=== PATIENT | male | born 1960 | race Caucasian/White ===

== ENCOUNTER 2022-05-01 22:15 | Inpatient (IN) | payer BC ==
[2022-05-01 22:49] LABS: BASO % 0.3 % (0-2.0); EOS % 1.1 % (0-4.5); HEMATOCRIT 49.9 % (35.4-49); HEMOGLOBIN 16.7 GM/dL (11.7-16.9); LYMPH % 3.8 % (8-40); MCH 31.5 pg (25.7-33.7); MCHC 33.4 g/dl (32.0-35.9); MEAN CELL VOLUME 94.5 fl (80-96); MEAN PLT VOLUME 8.5 fl (7.5-11.1); MONO % 4.1 % (3.8-10.2); NEUT % 90.7 % (42.8-82.8); PLATELET COUNT 163 10^3/uL (134-434); RBC 5.29 M/mm3 (4.00-5.60); RDW 13.5 % (11.9-15.9); WHITE BLOOD COUNT 17.3 K/mm3 (4.0-10.0)
[2022-05-01 22:58] LABS: INR 1.03 (0.83-1.09)
[2022-05-01 23:01] LABS: ACTIVATED PTT 25.3 SECONDS (25.2-36.5)
[2022-05-01 23:10] LABS: CALCIUM 9.9 mg/dL (8.5-10.1)
[2022-05-01 23:11] LABS: ALBUMIN 4.4 g/dl (3.4-5.0); BLOOD UREA NITROGEN 25.1 mg/dL (7-18); MAGNESIUM 2.2 mg/dL (1.8-2.4)
[2022-05-01 23:13] LABS: CREATININE 1.5 mg/dL (0.55-1.3)
[2022-05-01 23:14] LABS: BILIRUBIN,TOTAL 0.6 mg/dL (0.2-1); TOT PROT 7.4 g/dl (6.4-8.2)
[2022-05-01 23:21] LABS: LACTIC ACID 2.9 mmol/L (0.4-2.0)
[2022-05-01] MEDS ORDERED: SODIUM CHLORIDE 0.9% 500 ML INFUS.BAG IV ONE (23:58)
[2022-05-02] MEDS ORDERED: CEFTRIAXONE 1,000 MG in DEXTROSE 5%-WATER - 50 ML IVPB ONE (03:11)
[2022-05-02] MEDS ORDERED: AZITHROMYCIN IVPB 500 MG in DEXTROSE 5%-WATER - 250 ML IVPB ONE (03:11)
[2022-05-02] MEDS ORDERED: CEFTRIAXONE 1 GM/50 ML BAG ONE (03:22)
[2022-05-02] MEDS ORDERED: SODIUM CHLORIDE 1,000 ML IV STA (03:35)
[2022-05-02] MEDS ORDERED: LACTATED RINGERS SOLUTION 1000 ML INFUS.BAG IV ONE (03:37)
[2022-05-02] MEDS ORDERED: AZITHROMYCIN IVPB 500 MG/250 ML BAG IVPB ONE (03:42)
[2022-05-02 04:05] LABS: LACTIC ACID 2.6 mmol/L (0.4-2.0)
[2022-05-02 07:06] LABS: CALCIUM 8.6 mg/dL (8.5-10.1)
[2022-05-02 07:07] LABS: BLOOD UREA NITROGEN 29.4 mg/dL (7-18); MAGNESIUM 1.8 mg/dL (1.8-2.4)
[2022-05-02 07:10] LABS: CREATININE 1.5 mg/dL (0.55-1.3); PHOSPHOROUS 2.8 mg/dL (2.5-4.9)
[2022-05-02 07:11] LABS: BILIRUBIN,TOTAL 0.5 mg/dL (0.2-1); TOT PROT 5.8 g/dl (6.4-8.2)
[2022-05-02 07:21] LABS: ALBUMIN 3.4 g/dl (3.4-5.0)
[2022-05-02 07:38] LABS: HEMATOCRIT 46.1 % (35.4-49); HEMOGLOBIN 15.3 GM/dL (11.7-16.9); MCH 31.4 pg (25.7-33.7); MCHC 33.3 g/dl (32.0-35.9); MEAN CELL VOLUME 94.1 fl (80-96); MEAN PLT VOLUME 9.5 fl (7.5-11.1); PLATELET COUNT 122 10^3/uL (134-434); RDW 13.6 % (11.9-15.9)
[2022-05-02] MEDS: SODIUM CHLORIDE 1,000 ML IV SCH (07:55)
[2022-05-02] MEDS ORDERED: PIPERACILLIN/TAZOB 4.5 GM 4.5 GM/100 ML BAG IVPB ONE (07:56)
[2022-05-02] MEDS ORDERED: ALBUTEROL SO4 2.5/IPRATROPIUM 0.5 INH SOL 3 ML VIAL.NEB. NEB ONE ×3 (07:56→16:21)
[2022-05-02] MEDS: ALBUTEROL SO4 2.5/IPRATROPIUM 0.5 INH SOL 3 ML VIAL.NEB. NEB SCH ×4 (08:32→21:59)
[2022-05-02 08:41] LABS: N-TERMINAL BNP 203.6 pg/ml (5-125)
[2022-05-02] MEDS ORDERED: PIPERACILLIN/TAZOB 4.5 GM 4.5 GM in DEXTROSE 5%-WATER 100 ML IVPB SCH ×2 (09:00)
[2022-05-02 09:10] LABS: ARTERIAL BLD GAS O2 SATURATION 96.2 % (95-98); ARTERIAL BLOOD GAS BASE EXCESS -5.2 mmol/L (-2-2); ARTERIAL BLOOD GAS PO2 85.1 mmHg (80-100); ARTERIAL BLOOD GAS pH 7.359 (7.350-7.450)
[2022-05-02] MEDS ORDERED: PANTOPRAZOLE 40 MG TABLET PO ONE (09:31)
[2022-05-02] MEDS: PANTOPRAZOLE 40 MG TABLET PO SCH (09:42)
[2022-05-02] MEDS: NICOTINE 21 MG/24 HOURS TOPICAL PATCH TD SCH (13:15)
[2022-05-02] MEDS ORDERED: CEFTRIAXONE 2 GM/100 ML BAG IVPB ONE (16:22)
[2022-05-02] MEDS: CEFTRIAXONE 2 GM in DEXTROSE 5%-WATER 100 ML IVPB SCH (16:33)
[2022-05-02] MEDS ORDERED: methylPREDNISolone NA SUCC 40 MG/1 ML VIAL ONE (18:02)
[2022-05-02] MEDS: methylPREDNISolone NA SUCC 40 MG/1 ML VIAL IVPUSH SCH (18:13)
[2022-05-02] MEDS: RIVAROXABAN 10 MG TABLET PO SCH (21:59)
[2022-05-03] MEDS: SODIUM CHLORIDE 1,000 ML IV SCH ×2 (01:38→09:13)
[2022-05-03] MEDS: methylPREDNISolone NA SUCC 40 MG/1 ML VIAL IVPUSH SCH ×3 (01:38→17:52)
[2022-05-03 07:14] LABS: HEMATOCRIT 40.3 % (35.4-49); HEMOGLOBIN 13.6 GM/dL (11.7-16.9); MCH 31.5 pg (25.7-33.7); MCHC 33.7 g/dl (32.0-35.9); MEAN CELL VOLUME 93.5 fl (80-96); MEAN PLT VOLUME 9.4 fl (7.5-11.1); PLATELET COUNT 114 10^3/uL (134-434); RDW 13.7 % (11.9-15.9); WHITE BLOOD COUNT 14.1 K/mm3 (4.0-10.0)
[2022-05-03 07:41] LABS: CALCIUM 8.6 mg/dL (8.5-10.1)
[2022-05-03 07:45] LABS: CREATININE 0.9 mg/dL (0.55-1.3)
[2022-05-03] MEDS: ALBUTEROL SO4 2.5/IPRATROPIUM 0.5 INH SOL 3 ML VIAL.NEB. NEB SCH ×4 (08:25→20:45)
[2022-05-03] MEDS: NICOTINE 21 MG/24 HOURS TOPICAL PATCH TD SCH (09:15)
[2022-05-03] MEDS: PANTOPRAZOLE 40 MG TABLET PO SCH (09:15)
[2022-05-03] MEDS: VANCOMYCIN 250 MG/5 ML ORAL SOLUTION PO SCH (09:49)
[2022-05-03 09:51] LABS: LACTIC ACID 3.7 mmol/L (0.4-2.0)
[2022-05-03] MEDS ORDERED: AZITHROMYCIN IVPB 500 MG/250 ML BAG IVPB SCH (10:00)
[2022-05-03] MEDS ORDERED: SODIUM CHLORIDE 1,000 ML IV SCH (11:03)
[2022-05-03] MEDS: CEFTRIAXONE 2 GM in DEXTROSE 5%-WATER 100 ML IVPB SCH (11:14)
[2022-05-03 16:21] LABS: LACTIC ACID 3.9 mmol/L (0.4-2.0)
[2022-05-03] MEDS ORDERED: PATIENT'S OWN MEDICATION (NON-FORMULARY) (Eluxadoline [Viberzi] 75 MG Tablet) PO SCH (17:30)
[2022-05-03] MEDS: RIVAROXABAN 10 MG TABLET PO SCH (21:22)
[2022-05-04] MEDS: methylPREDNISolone NA SUCC 40 MG/1 ML VIAL IVPUSH SCH ×3 (02:20→17:37)
[2022-05-04 07:09] LABS: HEMATOCRIT 36.8 % (35.4-49); HEMOGLOBIN 12.4 GM/dL (11.7-16.9); MCH 31.4 pg (25.7-33.7); MCHC 33.6 g/dl (32.0-35.9); MEAN CELL VOLUME 93.5 fl (80-96); MEAN PLT VOLUME 9.1 fl (7.5-11.1); PLATELET COUNT 115 10^3/uL (134-434); RBC 3.93 M/mm3 (4.00-5.60); RDW 13.7 % (11.9-15.9); WHITE BLOOD COUNT 14.7 K/mm3 (4.0-10.0)
[2022-05-04] MEDS: ALBUTEROL SO4 2.5/IPRATROPIUM 0.5 INH SOL 3 ML VIAL.NEB. NEB SCH ×4 (07:15→20:31)
[2022-05-04 07:31] LABS: ALBUMIN 2.8 g/dl (3.4-5.0); BLOOD UREA NITROGEN 26.9 mg/dL (7-18); CALCIUM 8.2 mg/dL (8.5-10.1)
[2022-05-04 07:34] LABS: CREATININE 0.8 mg/dL (0.55-1.3)
[2022-05-04 07:36] LABS: TOT PROT 5.1 g/dl (6.4-8.2)
[2022-05-04 07:49] LABS: LACTIC ACID 2.6 mmol/L (0.4-2.0)
[2022-05-04] MEDS: ELUXADOLINE 75 MG PO SCH ×2 (07:59→17:36)
[2022-05-04 08:32] LABS: BILIRUBIN,TOTAL 0.3 mg/dL (0.2-1)
[2022-05-04] MEDS: NICOTINE 21 MG/24 HOURS TOPICAL PATCH TD SCH (09:42)
[2022-05-04] MEDS: VANCOMYCIN 250 MG/5 ML ORAL SOLUTION PO SCH (09:43)
[2022-05-04] MEDS: CEFTRIAXONE 2 GM in DEXTROSE 5%-WATER 100 ML IVPB SCH (09:43)
[2022-05-04] MEDS: PANTOPRAZOLE 40 MG TABLET PO SCH (09:43)
[2022-05-04] MEDS ORDERED: SODIUM CHLORIDE NASAL SPRAY 44 ML BOTTLE NS PRN (10:26)
[2022-05-04] MEDS: RIVAROXABAN 10 MG TABLET PO SCH (21:18)
[2022-05-05] MEDS: methylPREDNISolone NA SUCC 40 MG/1 ML VIAL IVPUSH SCH ×3 (01:45→21:34)
[2022-05-05 06:35] LABS: HEMATOCRIT 38.3 % (35.4-49); MCH 32.4 pg (25.7-33.7); MCHC 33.9 g/dl (32.0-35.9); MEAN CELL VOLUME 95.5 fl (80-96); MEAN PLT VOLUME 9.6 fl (7.5-11.1); PLATELET COUNT 130 10^3/uL (134-434); RBC 4.02 M/mm3 (4.00-5.60); RDW 13.6 % (11.9-15.9); WHITE BLOOD COUNT 17.6 K/mm3 (4.0-10.0)
[2022-05-05 07:04] LABS: CALCIUM 8.8 mg/dL (8.5-10.1)
[2022-05-05 07:05] LABS: ALBUMIN 2.8 g/dl (3.4-5.0)
[2022-05-05 07:09] LABS: CREATININE 0.9 mg/dL (0.55-1.3)
[2022-05-05 07:10] LABS: BILIRUBIN,TOTAL 0.3 mg/dL (0.2-1); TOT PROT 5.1 g/dl (6.4-8.2)
[2022-05-05] MEDS: ALBUTEROL SO4 2.5/IPRATROPIUM 0.5 INH SOL 3 ML VIAL.NEB. NEB SCH ×4 (08:29→21:14)
[2022-05-05] MEDS: ELUXADOLINE 75 MG PO SCH ×2 (08:34→17:37)
[2022-05-05] MEDS: PANTOPRAZOLE 40 MG TABLET PO SCH (10:09)
[2022-05-05] MEDS: NICOTINE 21 MG/24 HOURS TOPICAL PATCH TD SCH (10:10)
[2022-05-05] MEDS: CEFTRIAXONE 2 GM in DEXTROSE 5%-WATER 100 ML IVPB SCH (10:10)
[2022-05-05] MEDS: VANCOMYCIN 250 MG/5 ML ORAL SOLUTION PO SCH (10:13)
[2022-05-05 13:57] LABS: LACTIC ACID 3.7 mmol/L (0.4-2.0)
[2022-05-05] MEDS ORDERED: LACTATED RINGERS SOLUTION 1,000 ML/1,000 ML INFUS.BAG IV SCH ×2 (14:30→14:32)
[2022-05-05] MEDS: RIVAROXABAN 10 MG TABLET PO SCH (21:34)
[2022-05-05 22:39] LABS: LACTIC ACID 3.4 mmol/L (0.4-2.0)
[2022-05-05 23:25] VITALS: BMI 24.8
[2022-05-06] MEDS: LACTATED RINGERS SOLUTION 1,000 ML/1,000 ML INFUS.BAG IV SCH ×2 (03:25→17:28)
[2022-05-06] MEDS: ELUXADOLINE 75 MG PO SCH ×2 (07:47→17:26)
[2022-05-06] MEDS: ALBUTEROL SO4 2.5/IPRATROPIUM 0.5 INH SOL 3 ML VIAL.NEB. NEB SCH ×4 (08:02→21:38)
[2022-05-06 08:15] LABS: HEMATOCRIT 38.3 % (35.4-49); HEMOGLOBIN 13.1 GM/dL (11.7-16.9); MCH 31.8 pg (25.7-33.7); MCHC 34.3 g/dl (32.0-35.9); MEAN CELL VOLUME 92.8 fl (80-96); PLATELET COUNT 131 10^3/uL (134-434); RBC 4.12 M/mm3 (4.00-5.60); RDW 13.4 % (11.9-15.9); WHITE BLOOD COUNT 12.1 K/mm3 (4.0-10.0)
[2022-05-06 08:37] LABS: BLOOD UREA NITROGEN 23.2 mg/dL (7-18); CALCIUM 8.3 mg/dL (8.5-10.1)
[2022-05-06 08:38] LABS: ALBUMIN 2.8 g/dl (3.4-5.0)
[2022-05-06 08:39] LABS: CREATININE 0.8 mg/dL (0.55-1.3)
[2022-05-06 08:41] LABS: BILIRUBIN,TOTAL 0.3 mg/dL (0.2-1); TOT PROT 5.1 g/dl (6.4-8.2)
[2022-05-06] MEDS: methylPREDNISolone NA SUCC 40 MG/1 ML VIAL IVPUSH SCH ×2 (09:19→22:19)
[2022-05-06] MEDS: NICOTINE 21 MG/24 HOURS TOPICAL PATCH TD SCH (09:20)
[2022-05-06] MEDS: PANTOPRAZOLE 40 MG TABLET PO SCH (09:20)
[2022-05-06] MEDS: CEFTRIAXONE 2 GM in DEXTROSE 5%-WATER 100 ML IVPB SCH (09:20)
[2022-05-06] MEDS: VANCOMYCIN 250 MG/5 ML ORAL SOLUTION PO SCH (09:20)
[2022-05-06] MEDS ORDERED: guaiFENesin/CODEINE 10 ML UNIT-DOSE CUPS PO ONE (10:08)
[2022-05-06 13:08] LABS: LACTIC ACID 3.2 mmol/L (0.4-2.0)
[2022-05-06] MEDS: RIVAROXABAN 10 MG TABLET PO SCH (22:19)
[2022-05-07] MEDS: LACTATED RINGERS SOLUTION 1,000 ML/1,000 ML INFUS.BAG IV SCH (01:21)
[2022-05-07] MEDS: ALBUTEROL SO4 2.5/IPRATROPIUM 0.5 INH SOL 3 ML VIAL.NEB. NEB SCH (07:50)
[2022-05-07] MEDS: ELUXADOLINE 75 MG PO SCH (07:53)
[2022-05-07] MEDS: methylPREDNISolone NA SUCC 40 MG/1 ML VIAL IVPUSH SCH (09:02)
[2022-05-07] MEDS: CEFTRIAXONE 2 GM in DEXTROSE 5%-WATER 100 ML IVPB SCH (09:02)
[2022-05-07] MEDS: PANTOPRAZOLE 40 MG TABLET PO SCH (09:02)
[2022-05-07] MEDS: NICOTINE 21 MG/24 HOURS TOPICAL PATCH TD SCH (09:02)
[2022-05-07 09:14] VITALS: BP 133/93; PULSE 88; RESP 18; TEMP 98
== END 2022-05-07 11:56 | disposition home or self-care (01) | DRG 871 ==
LOC: JER 22:15 → JERBED 05-02 03:12 → J4W 05-02 22:57
PROVIDERS: ADMIT Internal Medicine; ATTEND Internal Medicine
DX: A41.89 Other specified sepsis (principal); J69.0 Pneumonitis due to inhalation of food and vomit; J96.01 Acute respiratory failure with hypoxia; D68.51 Activated protein C resistance; N17.9 Acute kidney failure, unspecified; E87.20 Acidosis, unspecified; R55 Syncope and collapse; I10 Essential (primary) hypertension; R19.7 Diarrhea, unspecified; A08.4 Viral intestinal infection, unspecified; K21.9 Gastro-esophageal reflux disease without esophagitis; R11.2 Nausea with vomiting, unspecified; D72.829 Elevated white blood cell count, unspecified; K58.9 Irritable bowel syndrome, unspecified; E86.0 Dehydration; I73.9 Peripheral vascular disease, unspecified; Z86.718 Personal history of other venous thrombosis and embolism
CPT/HCPCS: 0241U-QW; 36415; 36600; 70450-TC; 71045-TC-FY; 71275-TC; 72125-TC; 80048; 80053; 82803; 83605; 83690; 83735; 83880; 84100; 84484; 85025; 85027; 85379; 85610; 85730; 87040; 87045; 87046; 87070; 87086; 87186; 87205; 87425; 87798; 87899; 93005; 93010; 94010; 94640; 99285-25; C9803-CS; Q9967; U0003; U0005